=== PATIENT | male | born 1970 | race Hispanic/Latino ===

== ENCOUNTER 2020-01-22 18:46 | Emergency (ER) | payer OTHER ==
--- NOTE | 2020-01-22 19:21 | EDM.PDOC ---
<Gabby Larsen - Last Filed: 01/22/20 20:59> ED HPI GENERAL MEDICAL PROBLEM - General Chief Complaint: Respiratory Problem Stated Complaint: POSSIBLE PNEUMONIA PER PT Time Seen by Provider: 01/22/20 19:16 Source of Information: Reports: Patient History Limitations: Reports: No Limitations - History of Present Illness INITIAL COMMENTS - FREE TEXT/NARRATIVE: Patient presents to the ED by private vehicle with concerns of cough, vomiting, diarrhea, headache, joint pains, nasal drainage, and sore throat for the past 3 weeks. The patient reports that he has been seen over at the clinic on two occasions. He was initially thought to have a viral bronchitis and was advised on symptomatic treatment, he did test negative for influenza. He presented a week later to the clinic and was treated with z-antione and prednisone for 5 days. He also received an albuterol inhaler. The patient reports no resolution of his symptoms after completion of this course. He reports completing the course as prescribed. He presented to the clinic today and was suspected of pneumonia, however, imaging was unavailable at the clinic at that time, he was advised to present to the ED. 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 Onset: Other (3 weeks ago) Duration: Chronic, Constant Location: Reports: Chest Improves with: Reports: None Worsens with: Reports: None Associated Symptoms: Reports: Cough, cough w sputum, Fever/Chills, Headaches, Nausea/Vomiting Treatments [employer]: Reports: Acetaminophen, NSAIDS, Other (see below) (z-antione, prednisone burst for 5 days, albuterol inhaler as needed) Generalized Pain Score (Numeric/FACES): 4 - Related Data Allergies Allergy/AdvReac Type Severity Reaction Status Date / Time No Known Allergies Allergy Verified 01/22/20 18:59 Home Meds: Home Meds . [No Known Home Meds] 01/22/20 [History] Past Medical History Respiratory History: Reports: Bronchitis, Recurrent Gastrointestinal History: Reports: Cholelithiasis - Past Surgical History GI Surgical History: Reports: Cholecystectomy Social & Family History - Family History Family Medical History: Noncontributory - Tobacco Use Smoking Status *Q: Never Smoker Second Hand Smoke Exposure: No - Caffeine Use Caffeine Use: Reports: Coffee - Alcohol Use Date of Last Drink: 01/01/20 - Recreational Drug Use Recreational Drug Use: No ED ROS GENERAL - Review of Systems Review Of Systems: See Below Constitutional: Reports: Chills. Denies: Fever HEENT: Reports: Ear Pain, Rhinitis, Throat Pain Respiratory: Reports: Wheezing, Cough, Sputum Cardiovascular: Reports: Chest Pain GI/Abdominal: Reports: Diarrhea, Nausea, Vomiting. Denies: Abdominal Pain Musculoskeletal: Reports: Joint Pain Skin: Denies: Rash Neurological: Reports: Headache ED EXAM, GENERAL - Physical Exam Exam: See Below Exam Limited By: No Limitations General Appearance: Alert, No Apparent Distress Ears: Normal External Exam, Normal Canal, Hearing Grossly Normal Ear Exam: Bilateral Ear: TM Dull Nose: Normal Inspection, Normal Mucosa Throat/Mouth: Normal Inspection, Normal Gums, Normal Oropharynx Head: Atraumatic, Normocephalic Neck: Supple, Non-Tender. No: Lymphadenopathy (L), Lymphadenopathy (R) Respiratory/Chest: No Respiratory Distress, Lungs Clear, Normal Breath Sounds Cardiovascular: Normal Peripheral Pulses, Regular Rate, Rhythm, No Murmur GI/Abdominal: Normal Bowel Sounds, Soft, Non-Tender, No Distention Neurological: Alert, Oriented, No Motor/Sensory Deficits Psychiatric: Normal Affect, Normal Mood Skin Exam: Warm, Dry, Intact Course - Vital Signs Last Recorded V/S: Last Vital Signs Temp 36.9 C 01/22/20 18:57 Pulse 96 01/22/20 18:57 Resp 21 H 01/22/20 18:57 BP 163/93 H 01/22/20 18:57 Pulse Ox 99 01/22/20 18:57 - Orders/Labs/Meds Orders: Active Orders 24 hr Category Date Time Status CXR [Chest 2V] [CR] Urgent Exams 01/22/20 19:04 Taken CULTURE BLOOD [BC] Stat Lab 01/22/20 19:19 Received CULTURE BLOOD [BC] Stat Lab 01/22/20 20:15 Received Levofloxacin/Dextrose 5%-Water [Levaquin in D5W 750 MG/ Med 01/22/20 19:57 Active 150 ML] 750 mg Premix Bag 1 bag IV ONETIME Blood Culture x2 Reflex Set [OM.PC] Stat Oth 01/22/20 19:05 Ordered Medication Orders Levofloxacin/Dextrose 750 mg/ (Premix) 150 mls @ 100 mls/hr IV ONETIME ONE Stop: 01/22/20 21:26 Last Admin: 01/22/20 20:12 Dose: 100 mls/hr Labs: Laboratory Tests 01/22/20 01/22/20 01/22/20 Range/Units 19:19 19:19 19:19 WBC 7.5 (5.0-10.0) 10^3/uL RBC 4.92 (4.6-6.2) 10^6/uL Hgb 15.2 (14.0-18.0) g/dL Hct 44.1 (40.0-54.0) % MCV 89.6 (80-100) fL MCH 30.9 (27.0-34.0) pg MCHC 34.5 (33.0-35.0) g/dL Plt Count 209 (150-450) 10^3/uL Neut % (Auto) 51.7 (42.2-75.2) % Lymph % (Auto) 39.1 (20.5-50.1) % [place] % (Auto) 6.9 (2-8) % Eos % (Auto) 1.9 (1.0-3.0) % Baso % (Auto) 0.4 (0.0-1.0) % Sodium 140 (136-145) mmol/L Potassium 3.7 (3.5-5.1) mmol/L Chloride 102 (98-107) mmol/L Carbon Dioxide 29 (21-32) mmol/L Anion Gap 12.7 (7-13) mEq/L BUN 12 (7-18) mg/dL Creatinine 1.06 (0.70-1.30) mg/dL Est Cr Clr Drug Dosing 79.76 mL/min Estimated GFR (MDRD) > 60 BUN/Creatinine Ratio 11.3 (No establ ref range) Glucose 93 (74-99) mg/dL Lactic Acid 0.8 (0.4-2.0) mmol/L Calcium 8.6 (8.5-10.1) mg/dL Total Bilirubin 0.4 (0.2-1.0) mg/dL AST 27 (15-37) U/L ALT 63 (16-63) U/L Alkaline Phosphatase 74 (46-116) U/L Total Protein 7.8 (6.4-8.2) g/dL Albumin 4.2 (3.4-5.0) g/dL Globulin 3.6 Albumin/Globulin Ratio 1.2 Meds: Medications Generic Name Dose Route Start Last Admin Trade Name Lorraine PRN Reason Stop Dose Admin Levofloxacin/Dextrose 750 mg/ 150 mls @ 100 mls/hr 01/22/20 19:57 01/22/20 20 :12 Premix IV 01/22/20 21:26 100 mls/hr ONETIME ONE Administration - Radiology Interpretation Free Text/Narrative:: Chest XR reveals no acute cardiopulmonary disease. Departure - Departure Time of Disposition: 20:59 Disposition: Home, Self-Care 01 Condition: Good Clinical Impression: Bronchitis - Discharge Information *PRESCRIPTION DRUG MONITORING PROGRAM REVIEWED*: Not Applicable *COPY OF PRESCRIPTION DRUG MONITORING REPORT IN PATIENT CRUZ: Not Applicable Instructions: Acute Bronchitis, Adult, [id number], Upper Respiratory Infection, Adult, [id number], How to Use a Dry Powder Inhaler Forms: ED Department Discharge Additional Instructions: Rx: Levofloxacin. Take this medication as prescribed. Finish the full course of antibiotics. Robitussin with codeine. Take this medication at night. Do not drive while taking this medication. May continue to use albuterol inhaler up to 4 times daily as needed. Work note given through Monday. Rest, hydrate. Sepsis Event Note - Evaluation Sepsis Screening Result: No Definite Risk - Focused Exam Vital Signs: Vital Signs Temp Pulse Resp BP Pulse Ox 01/22/20 18:57 36.9 C 96 21 H 163/93 H 99 Date Exam was Performed: 01/22/20 Time Exam was Performed: 20:59 - My Orders Last 24 Hours: My Active Orders 01/22/20 19:57 Levofloxacin/Dextrose 5%-Water [Levaquin in D5W 750 MG/150 ML] 750 mg Premix Bag 1 bag IV ONETIME - Assessment/Plan Last 24 Hours: My Active Orders 01/22/20 19:57 Levofloxacin/Dextrose 5%-Water [Levaquin in D5W 750 MG/150 ML] 750 mg Premix Bag 1 bag IV ONETIME <Martín Carey - Last Filed: 01/22/20 21:02> Course - Radiology Interpretation Free Text/Narrative:: PROCEDURE INFORMATION: Exam: XR Chest, 2 Views Exam date and time: 01/22/2020 7:08 PM Age: 49 years old Clinical indication: Cough TECHNIQUE: Imaging protocol: XR of the chest Views: 2 views. COMPARISON: No relevant prior studies available. FINDINGS: Lungs: The lungs are symmetric, well expanded and clear. Subtle increased density overlying the left side of the heart on the frontal view only is felt to reflect summation of normal bronchovascular structures. Pleural space: There are no pleural effusions. There is no pneumothorax. Heart/Mediastinum: The heart size is normal as are the mediastinal and hilar contours. The pulmonary vessels are normal. Bones/joints: No acute osseous pathology is identified. IMPRESSION: No acute cardiopulmonary disease process identified. Follow-up radiographs may be helpful if clinical concern persists. Thank you for allowing us to participate in the care of your patient. Dictated and Authenticated by: Coleen Li MD 01/22/2020 7:35 PM Central Time ([place] & [place]) - Re-Assessments/Exams Free Text/Narrative Re-Assessment/Exam: 01/22/20 20:31 I have examined the patient. I have discussed findings and treatment plan with the PA student. I agree with the assessment and plan in the following students note. Sepsis Event Note - Focused Exam Date Exam was Performed: 01/22/20 Time Exam was Performed: 21:02
[2020-01-22 19:46] LABS: ANION GAP 12.7 mEq/L (7-13); CHLORIDE,CL 102 mmol/L (98-107); SODIUM,NA 140 mmol/L (136-145)
[2020-01-22] MEDS ORDERED: Levofloxacin/Dextrose 5%-Water 750 MG in Premix Bag 1 BAG IV ONE (19:57)
== END 2020-01-22 21:51 | disposition home or self-care (01) ==
LOC: DL.ED 18:46
DX: J40 Bronchitis, not specified as acute or chronic (principal)
CPT/HCPCS: 36415; 71046; 80053; 83605; 85025; 87040; 96365; 99284-25; J1956

== ENCOUNTER 2020-11-04 06:02 | Day surgery (SDC) | payer OTHER ==
[~2020-11-04 06:02] MED LIST: Dextrose 5%-0.45% NaCl 1,000 ML IV SCH; Midazolam 1 MG/ML 2 ML SDV ONE; Sodium Chloride 0.9% 10 ML Syringe FLUSH PRN; fentaNYL 100 MCG/2 ML SDV ONE
[2020-11-04] MEDS ORDERED: fentaNYL 100 MCG/2 ML SDV IV ONE ×4 (06:03→07:19)
[2020-11-04] MEDS ORDERED: Midazolam 1 MG/ML 2 ML SDV IV ONE ×7 (06:03→07:17)
--- NOTE | 2020-11-04 08:19 | OR ---
DATE: 11/04/2020 PROCEDURE: Total colonoscopy. INSTRUMENT USED: [id number] Olympus video colonoscope. PREMEDICATIONS: Fentanyl 125 mcg intravenous, Versed 4 mg intravenous. Nasal O2 cannula. The procedure was done under pulse oximetry, BP recording, and desk monitor. INDICATION: The patient with rectal bleeding and recent anal fistula surgery. Colonoscopic examination is done for detection of any polypoid lesions and removal, inflammatory bowel disease also under consideration, endoscopic hemostasis therapy if needed. DESCRIPTION OF PROCEDURE: Initial rectal exam was unremarkable. Rigid anoscopy showed small internal hemorrhoids without bleeding from them. The colonoscope was passed with ease. Scattered diverticula were noted in the distal left colon along with some deformity. The scope was passed with ease up to the ileocecal area. Photographs were taken of the normal-appearing cecum identified by landmarks of appendiceal orifice and double-bulged ileocecal folds. No bleeding was noted from any of the visualized areas at the commencement of the examination. Bowel preparation was found to be adequate. [place] scale 3 in all the regions. No stricture. No vascular ectasia. No large isolated ulcerations seen. No evidence of diffuse inflammatory bowel disease in the form of friability, contact bleeding, or ulcerations. No polyp or tumor mass identified. Probing the proximal sides of folds and flexures using adequate distention and clearing up the stool material, withdrawal of the scope was made. Cecum to rectum time over 6 minutes. No bleeding was noted from any of the visualized areas at the completion of examination. IMPRESSION: 1. Internal hemorrhoids. 2. Diverticulosis. The patient tolerated the procedure well. [facility] /[id number]
== END 2020-11-04 09:35 | disposition home or self-care (01) ==
LOC: DL.ENDO 06:02
PROVIDERS: ATTEND Internal Medicine Gastroenterology
DX: K57.30 Diverticulosis of large intestine without perforation or abscess without bleeding (principal); K64.8 Other hemorrhoids; K63.89 Other specified diseases of intestine; E66.09 Other obesity due to excess calories; M54.5 Low back pain; N52.9 Male erectile dysfunction, unspecified; Z90.49 Acquired absence of other specified parts of digestive tract; Z98.890 Other specified postprocedural states; Z68.29 Body mass index [BMI] 29.0-29.9, adult
CPT/HCPCS: J2250; J3010; J7042

== ENCOUNTER 2021-11-07 16:45 | Emergency (ER) | payer OTHER | END 2021-11-07 16:55 | disposition left against medical advice (07) | LOC: DL.ED 16:45 | DX: Z53.21 Procedure and treatment not carried out due to patient leaving prior to being seen by health care provider (principal) ==